=== PATIENT | female | born 1955 | race Caucasian/White ===

== ENCOUNTER 2024-09-05 09:19 | Emergency (ER) | payer MEDICARE, OTHER, SELFPAY ==
[2024-09-05] VITALS (10 sets, daily range): BP systolic 142–173; BP diastolic 74–109; PULSE 75–108; RESP 16; TEMP 37; O2SAT 96–99; BMI 32.3
--- NOTE | 2024-09-05 09:33 | ED_ITS ---
HPI - Back Pain/Injury General Chief Complaint: Back Pain/Injury Stated Complaint: L side pain Time Seen by Provider: 09/05/24 09:26 Source: patient Mode of arrival: Ambulatory Limitations: no limitations History of Present Illness HPI Narrative: Patient is a 69-year-old female who is here for evaluation of left-sided flank pain. States that her symptoms started last evening. He was fairly sudden onset. States that she ?was not doing anything? when the symptoms started. Has been persistent. No urinary symptoms. No blood in her urine. She did have a small bowel movement this morning that did not change the pain. She put a lidocaine patch over the area which has not helped her symptoms. No skin rashes. No fevers. No vomiting. She has had a kidney stone in the past and she states this feels different than that. No abdominal pain. No nausea or vomiting. Related Data Previous Rx's Medication Instructions Recorded hydrocodone 5 mg-acetaminophen 325 1 tab PO Q4-6H PRN pain #10 tabs 09/05/24 mg tablet prednisone 20 mg tablet 20 mg PO DAILY 7 days #7 tabs 09/05/24 Allergies Allergy/AdvReac Type Severity Reaction Status Date / Time codeine Allergy Verified 09/05/24 09:27 ibuprofen Allergy Verified 09/05/24 09:27 Review of Systems Review of Systems Narrative: See HPI Patient History Social History Smoking Status: Unknown if ever smoked Smoking Status: Unknown if ever smoked Exam Initial Vital Signs Initial Vital Signs: Vital Signs Temperature 98.6 F 09/05/24 09:20 Pulse Rate 108 H 09/05/24 09:20 Respiratory Rate 16 09/05/24 09:20 Blood Pressure 168/75 H 09/05/24 09:20 Pulse Oximetry 98 09/05/24 09:20 Oxygen Delivery Method Room Air 09/05/24 09:20 Const General: cooperative, comfortable and No ill appearing Resp Effort & Inspection: normal respiratory effort Cardio Rate: regular rate GI Inspection: normal to inspection and non-distended Back/Spine/Pelvis Back: CVA tenderness left Thoracic/Lumbar Spine: paraspinal tenderness (Left lumbar region) and No lumbar spinal tenderness Skin General: no rashes or lesions noted Neuro General: patient alert, patient awake and moves all extremities Extrem General: capillary refill normal Course Orders Ordered: ED Orders 09/05/24 09:45 Complete Blood Count AUTO DIFF Stat Comprehensive Metabolic Panel Stat Lipase Stat 09/05/24 10:25 Ictotest Urine Stat Urinalysis and Microscopic Stat 09/05/24 11:22 CT abdomen pelvis w con Stat Discontinued Medications Hydrocodone Bitart/Acetaminophen (Hydrocodone/Acet 5/325 Tablet) 1 tab PO NOW ONE Stop: 09/05/24 09:32 Last Admin: 09/05/24 10:12 Dose: 1 tab Documented By: RB Ketorolac Tromethamine (Ketorolac 30 Mg/Ml Vial) 15 mg IV NOW ONE Stop: 09/05/24 09:32 Last Admin: 09/05/24 10:12 Dose: 15 mg Documented By: RB Morphine Sulfate (Morphine 4 Mg/Ml Inj) 4 mg IV NOW ONE Stop: 09/05/24 11:23 Last Admin: 09/05/24 11:56 Dose: 4 mg Documented By: TREVIN Vital Signs Vital signs: Vital Signs - 8 hr 09/05/24 09:20 09/05/24 09:49 09/05/24 09:49 Temperature 98.6 F Pulse Rate 108 H 95 H Respiratory Rate 16 Blood Pressure 168/75 H 152/82 H Pulse Oximetry 98 98 Oxygen Delivery Method Room Air 09/05/24 10:00 09/05/24 10:00 09/05/24 10:24 Temperature Pulse Rate 91 H Respiratory Rate Blood Pressure 146/74 H 159/109 H Pulse Oximetry 97 Oxygen Delivery Method 09/05/24 10:24 09/05/24 10:30 09/05/24 10:30 Temperature Pulse Rate 90 89 Respiratory Rate Blood Pressure 154/98 H Pulse Oximetry 99 98 Oxygen Delivery Method 09/05/24 11:00 09/05/24 11:00 09/05/24 11:39 Temperature Pulse Rate 81 108 H Respiratory Rate Blood Pressure 142/78 H Pulse Oximetry 97 96 Oxygen Delivery Method 09/05/24 11:40 09/05/24 11:40 Temperature Pulse Rate 75 Respiratory Rate Blood Pressure 173/76 H Pulse Oximetry 98 Oxygen Delivery Method MDM - Back Pain/Injury Lab Data Attestation: I reviewed the patient's lab results. 09/05/24 09:45 09/05/24 09:45 Labs: Lab Results 09/05/24 09/05/24 Range/Units 09:45 10:25 WBC 9.5 (4.5-11.0) X10^3/uL RBC 4.30 (4.0-5.2) X10^6/uL Hgb 13.2 (12.0-16.0) g/dL Hct 39.4 (36-46) % MCV 91.6 (80-100) fL MCH 30.6 (26-34) PG MCHC 33.4 (30-36) % RDW 15.0 H (11.6-14.8) % Plt Count 390 (150-400) X10^3/uL Neut % (Auto) 66.9 (50-75) % Lymph % (Auto) 19.0 L (25-40) % [place] % (Auto) 10.8 (3-14) % Eos % (Auto) 2.0 (2-4) % Baso % (Auto) 1.3 (0-2) % Neut # (Auto) 6300 (3175-9302) /uL Lymph # (Auto) 1800 (8530-6240) /uL [place] # (Auto) 1000 H (0-900) /uL Eos # (Auto) 200 (0-450) /uL Baso # (Auto) 100 (0-100) /uL Sodium 139 (137-145) mmol/L Potassium 3.5 (3.4-5.1) mmol/L Chloride 105 (98-107) mmol/L Carbon Dioxide 26 (22-32) mmol/L BUN 11 (7-17) mg/dL Creatinine 0.90 (0.52-1.04) mg/dL Estimated GFR > 60 (>60) mL/min BUN/Creatinine Ratio 12.2 (6-22) Glucose 118 H (80-110) mg/dL Calcium 9.2 (8.4-10.2) mg/dL Total Bilirubin 0.9 (0.2-1.3) mg/dL AST 27 (14-36) IU/L ALT 18 (<35) IU/L Alkaline Phosphatase 76 (38-126) U/L Total Protein 7.7 (6.3-8.2) g/dL Albumin 4.1 (3.5-5.0) g/dL Globulin 3.6 (1.7-4.1) g/dL Albumin/Globulin Ratio 1.1 (1.0-2.8) Lipase 43 (23-300) U/L Urine Color Yellow Urine Appearance Clear Urine pH 6.0 (4.5-8.0) Ur Specific [place] 1.020 (1.000-1.035) Urine Protein Negative (Negative) Urine Glucose (UA) Negative (Negative) g/dL Urine Ketones 1+ H (NEGATIVE) Urine Occult Blood Trace-intact (Negative) Urine Nitrate Negative (Negative) Urine Bilirubin 1+ H (NEGATIVE) Ur Bilirubin Confirm TNP Urine Urobilinogen 1.0 (0.2) E.U./dL Ur Leukocyte Esterase Trace H (NEGATIVE) Urine RBC 1-5/hpf (0-5/HPF) Urine WBC 0-1/hpf (0-5/HPF) Ur Squamous Epith Cells 10-30 /hpf H (0-5/HPF) Urine Bacteria Occasional (0-1) (None) Urine Mucus 1+ H (Negative) Ur Culture Indicated? Cult not indicated Vol Urine Centrifuged Low vol <10ml (spun) A Imaging Data CT scan - abdomen/pelvis: Radiologist's Impression: PROCEDURE: CT ABDOMEN PELVIS W CON INDICATIONS: L flank pain TECHNIQUE: After the administration of intravenous contrast, axial sections acquired from the lung bases to the pubic symphysis. Coronal and sagittal reformats were performed. For radiation dose reduction, the following was used: automated exposure control, adjustment of mA and/or kV according to patient size. COMPARISON: [facility], CT, CT ABDOMEN PELVIS WITH CONTRAST, 09/02/2023, 21:28. FINDINGS: Image quality: Diagnostic. Lower Chest: No significant findings. ABDOMEN: Liver: No solid mass. Gallbladder: No radiopaque gallstones or wall thickening. Biliary ducts: No biliary dilation. Pancreas: No ductal dilation. Spleen: Size is within normal limits. Adrenal Glands: No adrenal nodules. Kidneys and Ureters: No hydronephrosis. No solid mass. No complex renal cystic lesion which requires follow up. Stomach and Bowel: Normal colonic caliber, without significant wall thickening. Moderate diverticulosis without evidence of acute diverticulitis. Normal appendix. Peritoneum: No abnormal intraperitoneal fluid. No free air. Ventral Wall: No significant ventral hernia. Abdominal Nodes: No retroperitoneal or mesenteric adenopathy by size criteria. Vessels: Aorta and inferior vena cava are normal in size. PELVIS: Pelvic Organs: Unremarkable. Bladder: No bladder wall thickening, accounting for underdistention. Pelvic Nodes: No enlarged lymph nodes. Miscellaneous: No inguinal hernias are seen. Bones: No aggressive osseous abnormality. Chronic Schmorl's node, superior endplate of L5. Interval mild inferior endplate compression of L3, potentially subacute. IMPRESSION: 1. Moderate diverticulosis without evidence of acute diverticulitis. 2. No acute abdominal process noted. 3. Interval inferior endplate compression of L3, possibly still subacute. Comment: If clinically suspect a painful symptomatic subacute L3 compression fracture, consider nonemergent lumbar spine MRI. MDM Narrative Medical decision making narrative: Patient reports some improvement with the medications here in the ER. Labs are unremarkable. Urinalysis is not consistent with a UTI. Low suspicion for pyelonephritis. CT scan shows no signs of bowel obstruction, diverticulitis or an acute surgical issue. She does have an L3 compression fracture. This potentially could be new she was tender in this area however she does not report any specific trauma. I discussed all this with her. States she can not take anti-inflammatories because it causes her to have vaginal bleeding. She can not take muscle relaxers because it causes her to have restless leg. Will put her on steroids. Pain medication for breakthrough pain. Recommended fallen up with primary care doctor. She expressed understanding and agreement with plan. Discharge Plan Departure Patient Disposition: Home Clinical Impression: Compression fracture of L3 vertebra, Low back pain Instructions: DI for Low Back Pain Activity Restrictions/Additional Instructions: Recommend that you try to stay as active as possible. Use the pain medication as directed. I recommend you contact your primary doctor for follow-up. Return to the emergency department for new or worsening symptoms. Prescriptions: New prednisone 20 mg tablet 20 mg PO DAILY 7 Days Qty: 7 0RF hydrocodone-acetaminophen 5-325 mg tablet 1 tab PO Q4-6H PRN (Reason: pain) Qty: 10 0RF Stand Alone Forms: Patient Portal/API/Survey
[2024-09-05 09:56] LABS: Add Manual Diff / Slide Review NO; Basophils Absolute Auto 100 /uL (0-100); Basophils Percent Auto 1.3 % (0-2); Eosinophils Absolute Auto 200 /uL (0-450); Hematocrit 39.4 % (36-46); Hemoglobin 13.2 g/dL (12.0-16.0); Lymphocytes Absolute Auto 1800 /uL (1100-4500); Mean Corpuscular HGB Conc 33.4 % (30-36); Mean Corpuscular Hemoglobin 30.6 PG (26-34); Mean Corpuscular Volume 91.6 fL (80-100); Monocytes Absolute Auto 1000 /uL (0-900); Monocytes Percent Auto 10.8 % (3-14); Neutrophils Absolute Auto 6300 /uL (1500-7000); Neutrophils Percent Auto 66.9 % (50-75); Platelet Count 390 X10^3/uL (150-400); White Blood Cell Count 9.5 X10^3/uL (4.5-11.0)
[2024-09-05] MEDS: HYDROCODONE/ACET 5/325 TABLET 1 TAB PO (10:12)
[2024-09-05] MEDS: KETOROLAC 30 MG/ML VIAL 15 MG IV (10:12)
[2024-09-05 10:20] LABS: Alanine Aminotransferase 18 IU/L (<35); Albumin 4.1 g/dL (3.5-5.0); Albumin Globulin Ratio 1.1 (1.0-2.8); Alkaline Phosphatase 76 U/L (38-126); Aspartate Aminotransferase 27 IU/L (14-36); BUN Creatinine Ratio 12.2 (6-22); Bilirubin Total 0.9 mg/dL (0.2-1.3); Blood Urea Nitrogen 11 mg/dL (7-17); Calcium 9.2 mg/dL (8.4-10.2); Carbon Dioxide 26 mmol/L (22-32); Chloride 105 mmol/L (98-107); Estimated Glomerular Filt Rate > 60 mL/min (>60); Globulin 3.6 g/dL (1.7-4.1); Glucose 118 mg/dL (80-110); HEMOLYSIS < 15 (0-50); Lipase 43 U/L (23-300); Potassium 3.5 mmol/L (3.4-5.1); Sodium 139 mmol/L (137-145); Total Protein 7.7 g/dL (6.3-8.2)
[2024-09-05 10:44] LABS: Appearance Urine UA CLEAR; Bilirubin Urine UA 1+ (NEGATIVE); Color Urine UA YELLOW; Glucose Urine UA NEGATIVE (Negative); Ketones Urine UA 1+ (NEGATIVE); Leukocyte Esterase Urine UA TRACE (NEGATIVE); Nitrite Urine UA NEGATIVE (Negative); Occult Blood Urine UA TRACE-INTACT (Negative); Protein Urine UA NEGATIVE (Negative)
--- NOTE | 2024-09-05 11:22 | DI.CT.S_ITS ---
PROCEDURE: CT ABDOMEN PELVIS W CON INDICATIONS: L flank pain TECHNIQUE: After the administration of intravenous contrast, axial sections acquired from the lung bases to the pubic symphysis. Coronal and sagittal reformats were performed. For radiation dose reduction, the following was used: automated exposure control, adjustment of mA and/or kV according to patient size. COMPARISON: [facility], CT, CT ABDOMEN PELVIS WITH CONTRAST, 09/02/2023, 21:28. FINDINGS: Image quality: Diagnostic. Lower Chest: No significant findings. ABDOMEN: Liver: No solid mass. Gallbladder: No radiopaque gallstones or wall thickening. Biliary ducts: No biliary dilation. Pancreas: No ductal dilation. Spleen: Size is within normal limits. Adrenal Glands: No adrenal nodules. Kidneys and Ureters: No hydronephrosis. No solid mass. No complex renal cystic lesion which requires follow up. Stomach and Bowel: Normal colonic caliber, without significant wall thickening. Moderate diverticulosis without evidence of acute diverticulitis. Normal appendix. Peritoneum: No abnormal intraperitoneal fluid. No free air. Ventral Wall: No significant ventral hernia. Abdominal Nodes: No retroperitoneal or mesenteric adenopathy by size criteria. Vessels: Aorta and inferior vena cava are normal in size. PELVIS: Pelvic Organs: Unremarkable. Bladder: No bladder wall thickening, accounting for underdistention. Pelvic Nodes: No enlarged lymph nodes. Miscellaneous: No inguinal hernias are seen. Bones: No aggressive osseous abnormality. Chronic Schmorl's node, superior endplate of L5. Interval mild inferior endplate compression of L3, potentially subacute. IMPRESSION: 1. Moderate diverticulosis without evidence of acute diverticulitis. 2. No acute abdominal process noted. 3. Interval inferior endplate compression of L3, possibly still subacute. Comment: If clinically suspect a painful symptomatic subacute L3 compression fracture, consider nonemergent lumbar spine MRI. Dictated by: Joesph Ramos M.D. on 09/05/2024 at 11:54 Approved by: Joesph Ramos M.D. on 09/05/2024 at 11:59
[2024-09-05 11:29] LABS: Bacteria Urine Occasional (0-1); Culture Indicated Urine Cult Not Indicated; Mucus Urine 1+ (Negative); RBC Urine 1-5/HPF (0-5/HPF); Squamous Epithelial Cell Urine 10-30 /HPF (0-5/HPF); Urine Volume Low Vol <10mL (spun); WBC Urine 0-1/HPF (0-5/HPF)
[2024-09-05] MEDS: MORPHINE 4 MG/ML INJ IV (11:56)
== END 2024-09-05 12:50 | disposition home or self-care (01) ==
PROVIDERS: Emergency Provider Emergency Medicine
DX: M48.56XA Collapsed vertebra, not elsewhere classified, lumbar region, initial encounter for fracture (principal); R10.9 Unspecified abdominal pain; M54.50 Low back pain, unspecified
CPT/HCPCS: 36415; 74177; 80053; 81001; 83690; 85025; 96374; 96375; 99284; J1885; J2270; Q9967